=== PATIENT | female | born 1955 | race Caucasian/White ===

== ENCOUNTER 2017-10-05 15:44 | Emergency (ER) | payer BC, OTHER ==
[~2017-10-05] VITALS: Ht 157.5 cm; Wt 58.5 kg
[2017-10-05 15:56] VITALS: BP 148/89; PULSE 75; RESP 18; TEMP 98.6; O2SAT 98
[2017-10-05] MEDS ORDERED: TETANUS/DIPHTHERIA TOXOID ADULT 0.5 ML VIAL IM ONE (16:15)
[2017-10-05] MEDS ORDERED: LIDOCAINE HCL 1% PF 30 ML VIAL INFIL ONE (16:15)
[2017-10-05] MEDS ORDERED: CEPH-460 PO (16:59)
--- NOTE | 2017-10-05 17:01 | PD ---
HPI Chief Complaint: Injury Time Seen by Provider: 16:08 Travel History International Travel<30 days: No Contact w/Intl Traveler<30days: No Traveled to known affect area: No History of Present Illness HPI 62-year-old female presents emergency department for evaluation of a laceration to the right ankle. Says that she was moving a boat when a pitch skinned the inside of her ankle. Since that she has pain directly over the year but denies any pain to range of motion of her ankle. Denies numbness or tingling. The pain is mild to moderate in severity. She is not murmur her last tetanus vaccination. PFSH Past Medical History Medical History: Denies Significant Hx Cancer: No Diabetes: No Diminished Hearing: No Glaucoma: No Hepatitis: No Hiatal Hernia: No Hypertension: No Immunizations Current: Yes Thyroid Disease: No Tetanus Vaccination: > 5 Years Influenza Vaccination: No ?: Not Menopausal: Yes Past Surgical History Abdominal Surgery: No Cardiac Surgery: No Ear Surgery: No Endocrine Surgery: No Eye Surgery: Yes (ADEOLA LASIK SURGERY) Genitourinary Surgery: No Gynecologic Surgery: No Oral Surgery: No Pacemaker: No Thoracic Surgery: No Other Surgery: Yes Social History Alcohol Use: Yes (3 DAILY) Tobacco Use: Yes (6 CIGS DAILY) Substance Use: No Allergies-Medications (Allergen,Severity, Reaction): Coded Allergies: azithromycin (Unverified Allergy, Intermediate, HIVES, 10/05/17) celecoxib (Unverified Allergy, Intermediate, FLU-LIKE SYMPTOMS, 10/05/17) diclofenac (Unverified Allergy, Intermediate, FLU-LIKE SYMPTOMS, 10/05/17) etodolac (Unverified Allergy, Intermediate, FLU-LIKE SYMPTOMS, 10/05/17) flurbiprofen (Unverified Allergy, Intermediate, FLU-LIKE SYMPTOMS, 10/05/17 ) ibuprofen (Unverified Allergy, Intermediate, FLU-LIKE SYMPTOMS, 10/05/17) indomethacin (Unverified Allergy, Intermediate, FLU-LIKE SYMPTOMS, 10/05/17 ) ketoprofen (Unverified Allergy, Intermediate, FLU-LIKE SYMPTOMS, 10/05/17) ketorolac (Unverified Allergy, Intermediate, FLU-LIKE SYMPTOMS, 10/05/17) naproxen (Unverified Allergy, Intermediate, FLU-LIKE SYMPTOMS, 10/05/17) oxaprozin (Unverified Allergy, Intermediate, FLU-LIKE SYMPTOMS, 10/05/17) rofecoxib (Unverified Allergy, Intermediate, FLU-LIKE SYMPTOMS, 10/05/17) Reported Meds & Prescriptions Reported Meds & Active Scripts Active Keflex (Cephalexin) 500 Mg Cap 500 Mg PO Q12H 5 Days Review of Systems Except as stated in HPI: all other systems reviewed are Neg Physical Exam Narrative GENERAL: Well-nourished, well-developed patient, in NAD SKIN: Focused skin assessment warm/dry. No rashes or lesions. HEAD: Normocephalic. Atraumatic. EYES: No scleral icterus. No injection or drainage. THROAT: No pharyngeal injection, exudates, or tonsillar hypertrophy. Airway is patent. NECK: Supple, trachea midline. No JVD or lymphadenopathy. No meningismus. CARDIOVASCULAR: Regular rate and rhythm without murmurs, gallops, or rubs. RESPIRATORY: Breath sounds equal bilaterally. No accessory muscle use. No wheezes, rales, or rhonchi MUSCULOSKELETAL: No cyanosis, or edema. Right ankle medial aspect with a V-shaped laceration/avulsion approximately 4 cm. Bleeding controlled. No evidence of underlying abnormalities or injury. Full range of motion of ankle. Neurovascular intact. BACK: Nontender without obvious deformity. No CVA tenderness. Data Data Last Documented VS Vital Signs Date Time Temp Pulse Resp B/P (MAP) Pulse Ox O2 Delivery O2 Flow Rate FiO2 10/05/17 15:56 98.6 75 18 148/89 (108) 98 Orders Orders Tetanus/Diphtheria Tox Adult (Tetanus/Di (10/05/17 16:15) Lidocaine Pf 1% Inj (Xylocaine-Mpf 1% In (10/05/17 16:15) Ed Discharge Order (10/05/17 17:02) Wound Care (10/05/17 17:02) MDM Medical Decision Making Medical Screen Exam Complete: Yes Emergency Medical Condition: Yes Differential Diagnosis Right ankle avulsion, right ankle laceration, right ankle abrasion Narrative Course 62-year-old female presents to the emergency department for evaluation of a laceration to the medial aspect of her ankle. There is no evidence of bony involvement. Patient is ambulatory in the emergency department today. Laceration repair completed. Patient be discharged with Keflex for prophylactic antibiotic use. Wound care performed in the emergency department. Patient advised in wound care and suture removal. She should return for evidence of infection. Procedures Procedure Narrative LACERATION LOCATION: Right medial ankle LENGTH: 6 cm NUMBER OF STITCHES/CHIKI: 12 REPAIR: The area of the laceration was prepped with Betadine and sterilely draped. The laceration was infiltrated with 1% lidocaine without epinephrine. The wound was copiously irrigated and explored without evidence of foreign body, tendon injury or neurovascular injury. The wound was closed using 5-0 Prolene. This was a single layer repair. A sterile dressing was applied. The patient was advised to keep the dressing clean and dry. Patient tolerated the procedure well. Diagnosis Primary Impression: Laceration of ankle Qualified Codes: S91.011A - Laceration without foreign body, right ankle, initial encounter Referrals: Primary Care Physician Additional Instructions: Follow up with your primary care physician within 2-3 days. Keep area clean and dry for 24 hours. After 24 hours, you may bathe as normal but dry the area thoroughly. You may use [id number] triple antibiotic ointments for your injury daily. Change dressings daily. If bleeding starts, apply pressure and elevate the area. If you developed increased redness, swelling, or pain return to the emergency department as this could be a sign of infection. Take medications as prescribed. Suture removal in 7-10 days. Scripts Cephalexin (Keflex) 500 Mg Cap 500 MG PO Q12H for Infection for 5 Days, #10 CAP 0 Refills Prov: Acosta Jacome MD 10/05/17 Disposition: 01 DISCHARGE HOME Condition: Stable Loretta Simon October 05, 2017 17:01
== END 2017-10-05 17:21 | disposition home or self-care (01) ==
LOC: PHEFT 15:44
DX: S91.011A Laceration without foreign body, right ankle, initial encounter (principal); F17.210 Nicotine dependence, cigarettes, uncomplicated; W26.8XXA Contact with other sharp object(s), not elsewhere classified, initial encounter; Z23 Encounter for immunization; Z88.6 Allergy status to analgesic agent
CPT/HCPCS: 12002; 90471; 90714